=== PATIENT | female | born 1990 | race Caucasian/White ===

== ENCOUNTER 2022-07-01 10:18 | Emergency (ER) | payer OTHER, SELFPAY ==
--- NOTE | 2022-07-01 10:23 | ED.URI ---
HPI - URI/Sore Throat General Chief Complaint: Upper Respiratory Infection Stated Complaint: sorethroat Time Seen by Provider: 07/01/22 10:51 Source: patient and RN notes reviewed Mode of arrival: ambulatory Limitations: no limitations History of Present Illness HPI Narrative: 32-year-old female presents concern for sore throat, headache, vomiting, nasal, body aches for 3 days. She reports she has been taking ibuprofen Tylenol with temporary relief symptoms. MD elicited complaint: sore throat Related Data Home Medications Medication Instructions Recorded Confirmed sertraline 50 mg tablet 50 mg PO DAILY 07/01/22 07/01/22 Allergies Allergy/AdvReac Type Severity Reaction Status Date / Time No Known Allergies Allergy Verified 07/01/22 10:48 Review of Systems Review of Systems: CONSTITUTIONAL: Reports malaise, fatigue. Denies chills, sweats, or fever. EYES: Denies visual changes, redness, or discharge. ENT: Reports rhinorrhea, congestion, sore throat. Denies sinus pain, otalgia CARDIOVASCULAR: Denies chest pain, palpitations, or edema. RESPIRATORY: Denies cough. Denies dyspnea. GASTROINTESTINAL: Denies abdominal pain, nausea, vomiting, diarrhea SKIN: Denies rash or itching. MUSCULOSKELETAL: Reports myalgia. NEUROLOGIC: Reports headache. All systems reviewed & are unremarkable except as noted in HPI and below PMFSH Comments At time of signature, agree with nursing past medical, surgical, social and family history. There is no relevant family history pertinent to the presenting complaint Exam Narrative: GENERAL: Nontoxic appearing and in no acute distress. HEAD: Normocephalic EYES: PERRLA, conjunctivae clear ENT: Nares clear, turbinates edematous and erythematous, clear discharge. Mucous membranes moist. TM pearly sales with dull light reflex bilaterally; no tragal tenderness. Oropharynx not erythematous without lesions. Tonsils not enlarged and without exudate, no drooling, no hoarseness, no trismus, uvula midline. NECK: Supple. No lymphadenopathy CHEST: Clear to auscultation, breath sounds equal. No wheezing, rhonchi, rales, or stridor. No respiratory distress, speaks in full sentences. HEART: Regular rate and rhythm. No murmur heard. SKIN: Warm, dry, no rash. NEURO: Alert and oriented x3. PSYCH: Normal mood and affect Course Course Emergency Course: Patient is aware of diagnosis, understands and agrees to treatment plan. Anticipatory guidance given. Patient agrees to follow-up as directed and is aware of reasons to seek care at the emergency department. Portions of this record may have been created with voice recognition software Level of Care: Express Care Visit Vital Signs Vital signs: Reviewed. MDM - URI/Sore Throat MDM Narrative Medical decision making narrative: Differential diagnosis considered: Guardado virus, strep pharyngitis, allergic rhinitis, upper respiratory tract infection, sinusitis, rhinosinusitis, nasopharyngitis. viral pharyngitis, otitis media, otitis externa, pneumonia, bronchitis, viral cough syndrome, viral syndrome, and influenza. Exam findings show no acute concerns or changes; patient is non-toxic appearing and is in no distress. Patient is appropriate for outpatient treatment and follow-up. Lab Data Attestation: I reviewed the patient's lab results. Critical Care Time Critical Care Time Critical Care Time: No Discharge Plan Discharge Clinical Impression: Upper respiratory infection Qualifiers: URI type: unspecified viral URI Qualified Code(s): J06.9 - Acute upper respiratory infection, unspecified Patient Disposition: Home, Self-Care Condition: Stable Instructions: Upper Respiratory Infection (ED) Additional Instructions: Your rapid COVID and flu tests are negative Your rapid strep swab was negative today at [facility]. A throat culture will be sent to the laboratory for further testing. If the test is positive, you will receive a phone call withi
[2022-07-01 10:37] VITALS: BP 130/83; PULSE 79; RESP 18; TEMP 36.4; O2SAT 99
== END 2022-07-01 11:15 | disposition home or self-care (01) ==
PROVIDERS: Emergency Provider Nurse Practitioner; PCP Nurse Practitioner Family
DX: J06.9 Acute upper respiratory infection, unspecified (principal); Z20.822 Contact with and (suspected) exposure to COVID-19
CPT/HCPCS: 87081; 87426; 87804; 87880; 99203; C9803; G0463

== ENCOUNTER 2022-09-08 10:37 | Emergency (ER) | payer OTHER, SELFPAY ==
[2022-09-08 10:48] VITALS: BP 127/84; PULSE 72; RESP 16; TEMP 36.6; O2SAT 100
--- NOTE | 2022-09-08 11:06 | ED.EAR ---
HPI - Ear Problem General Chief complaint: Ear Stated complaint: lt earache Time Seen by Provider: 09/08/22 11:06 Source: patient Mode of arrival: ambulatory Limitations: no limitations History of Present Illness HPI Narrative: 32 y/o female presented for c/o left ear pain. Reports muffled hearing for about one week. Then started with worsening of chronic tinnitus, 'distorted sounds' and pain since yesterday. Denies dizziness, ear drainage, n/v/d/f/c. Not taking anything for pain. MD Complaint: ear pain Related Data Home Medications Medication Instructions Recorded Confirmed sertraline 50 mg tablet 50 mg PO DAILY 07/01/22 09/08/22 Allergies Allergy/AdvReac Type Severity Reaction Status Date / Time No Known Allergies Allergy Verified 09/08/22 10:40 Review of Systems Review of Systems: CONSTITUTIONAL: Denies malaise, chills, or fever. EYES: Denies visual changes, redness, or discharge. ENT: Denies rhinorrhea, congestion, sinus pain, and sore throat. Reports ear pain CARDIOVASCULAR: Denies chest pain, palpitations, or edema. RESPIRATORY: Denies cough or dyspnea. GASTROINTESTINAL: Denies abdominal pain, nausea, vomiting, diarrhea SKIN: Denies rash or itching. MUSCULOSKELETAL: Denies myalgia. NEUROLOGIC: Denies headache. All systems reviewed & are unremarkable except as noted in HPI and below PMFSH Past Medical History Medical History (Updated 09/08/22 @ 11:15 by Jocelynn Willard, SRIDHAR) No pertinent past medical history Comments At time of signature, agree with nursing past medical, surgical, social and family history. There is no relevant family history pertinent to the presenting complaint Exam Narrative: GENERAL: Well-appearing, and in no acute distress. HEAD: Normocephalic EYES: PERRLA, conjunctivae clear ENT: Nares clear. Mucous membranes moist. Right TM pearly sales with dull light reflex; Left TM erythematous and bulging with purulent effusion; no tragal tenderness. Oropharynx not erythematous without lesions. NECK: Supple. No lymphadenopathy CHEST: Clear to auscultation, breath sounds equal. HEART: Regular rate and rhythm. No murmur heard. SKIN: Warm, dry, no rash. NEURO: Alert and oriented x3. PSYCH: Normal mood and affect Course Course Emergency Course: Patient is aware of diagnosis, understands and agrees to treatment plan. Anticipatory guidance given. Patient agrees to follow-up as directed and is aware of reasons to seek care at the emergency department. Portions of this record may have been created with voice recognition software Level of Care: Express Care Visit Vital Signs Vital signs: Vital Signs Temperature 97.9 F 09/08/22 10:48 Pulse Rate 72 09/08/22 10:48 Respiratory Rate 16 09/08/22 10:48 Blood Pressure 127/84 09/08/22 10:48 Pulse Oximetry 100 09/08/22 10:48 Oxygen Delivery Room Air 09/08/22 10:48 Temperature 97.9 F 09/08/22 10:48 Pulse Rate 72 09/08/22 10:48 Respiratory Rate 16 09/08/22 10:48 Blood Pressure 127/84 09/08/22 10:48 Pulse Oximetry 100 09/08/22 10:48 Oxygen Delivery Room Air 09/08/22 10:48 Reviewed Medical Decision Making MDM Narrative Medical decision making narrative: Discussed physical exam findings consistent with otitis media. Rx augmentin. Advised supportive measures and signs/symptoms to go to the ER. Patient is appropriate for outpatient treatment and follow-up. Differential Diagnosis Differential Diagnosis: Coronavirus, strep pharyngitis, allergic rhinitis, upper respiratory tract infection, sinusitis, rhinosinusitis, nasopharyngitis, viral pharyngitis, otitis media, otitis externa, eustachian tube dysfunction, foreign body, cerumen impaction. Vital Signs Vital Signs: Vital Signs Temperature 97.9 F 09/08/22 10:48 Pulse Rate 72 09/08/22 10:48 Respiratory Rate 09/08/22 10:48 Blood Pressure 127/84 09/08/22 10:48 Pulse Oximetry 100 09/08/22 10:48 Oxygen Delivery Room
== END 2022-09-08 11:14 | disposition home or self-care (01) ==
PROVIDERS: Emergency Provider Nurse Practitioner Family; PCP Nurse Practitioner Family
DX: H66.002 Acute suppurative otitis media without spontaneous rupture of ear drum, left ear (principal)
CPT/HCPCS: 99213; G0463

== ENCOUNTER 2023-01-10 09:02 | Emergency (ER) | payer OTHER, SELFPAY ==
--- NOTE | 2023-01-10 09:16 | ED.URI ---
HPI - URI/Sore Throat General Chief Complaint: Upper Respiratory Infection Stated Complaint: Sore Throat and Bronchitis Time Seen by Provider: 01/10/23 09:16 Source: patient Mode of arrival: ambulatory Limitations: no limitations History of Present Illness HPI Narrative: 32-year-old female presents with complaint of cough for 10 days, sore throat for 4 days. Was seen at another urgent care 4 days ago for cough and was given promethazine. Told that she has bronchitis. Has not started promethazine because she is home alone with her 2 older until her gets home today in did not want to be too sleepy. is taking [id number] Mucinex. Reports that sore throat started after urgent care visit. Afebrile. Denies nausea vomiting diarrhea. Denies chest pain shortness of breath. All systems reviewed and negative except as noted above. Related Data Home Medications Medication Instructions Recorded Confirmed sertraline 50 mg tablet 50 mg PO DAILY 07/01/22 01/10/23 Allergies Allergy/AdvReac Type Severity Reaction Status Date / Time No Known Allergies Allergy Verified 01/10/23 09:11 Review of Systems Review of Systems: CONSTITUTIONAL: Denies fever, chills, or sweats. EYES: Denies visual changes, redness, or discharge. ENT: Denies rhinorrhea, congestion. Reports sore throat. Denies otalgia. CARDIOVASCULAR: Denies chest pain, palpitations, or edema. RESPIRATORY: Reports cough. Denies dyspnea. GASTROINTESTINAL: Denies abdominal pain, nausea, vomiting, or diarrhea. GENITOURINARY: Denies dysuria or hematuria. SKIN: Denies rash or itching. MUSCULOSKELETAL: Denies back pain, joint pain, or myalgia. NEUROLOGIC: Denies headache, numbness, or weakness. PSYCHIATRIC: Denies anxiety or depression. All other systems reviewed are negative, except as documented in HPI. [facility] Past Medical History Medical History (Updated 01/10/23 @ 09:38 by Anisha Lopez NP) No pertinent past medical history Comments At time of signature, agree with nursing past medical, surgical, social and family history. There is no relevant family history pertinent to the presenting complaint. Exam Narrative: GENERAL: This is a well-nourished, well-developed patient, in no apparent distress. HEAD: normocephalic, atraumatic. EYES: PERRL. Sclera clear/white. Vision is grossly intact. EARS: External ears normal, auditory canals clear and without drainage, TMs normal without perforation. Hearing grossly intact. NOSE: External nose normal with no obvious nasal discharge, nares without redness, no rhinorrhea. THROAT: Mucous membranes moist, Erythematous with mild swelling. No exudates. Tonsils 1+ bilaterally. NECK: Neck supple, non-tender without lymphadenopathy, masses or thyromegaly. CARDIOVASCULAR: Regular rate and rhythm without murmurs, gallops, or rubs. RESPIRATORY: Clear to auscultation. Breath sounds equal bilaterally. No wheezes, rales, or rhonchi. SKIN: warm, Dry, intact with no suspicious lesions or rash, good texture and turgor. NEURO: awake, alert, and oriented to person, place and time. There were no obvious focal neurologic abnormalities. EXTREMITIES: No joint tenderness, effusion, or edema noted. Course Course Level of Care: Express Care Visit Vital Signs Vital signs: Reviewed MDM - URI/Sore Throat MDM Narrative Medical decision making narrative: Patient is aware of diagnosis, understands and agrees to treatment plan. Anticipatory guidance given. Patient agrees to follow-up as directed and is aware of reasons to seek care at the emergency department. Portions of this record may have been created with voice recognition software Differential Diagnosis Differential diagnosis: Likely pharyngitis ( strep throat) Discharge Plan Discharge Clinical Impression: Strep throat, Cough Patient Disposition: Home, Self-Care Condition: Stable Instructions: Strep Throat (ED) Additional Instructio
[2023-01-10 09:36] VITALS: BP 127/91; PULSE 103; RESP 18; TEMP 36.6; O2SAT 99
== END 2023-01-10 09:42 | disposition home or self-care (01) ==
PROVIDERS: Emergency Provider Nurse Practitioner Family
DX: J02.0 Streptococcal pharyngitis (principal); R05.9 Cough, unspecified
CPT/HCPCS: 87880; 99213; G0463

== ENCOUNTER → 2024-02-04 12:06 | Outpatient (CLI) | payer BC, SELFPAY ==
--- NOTE | ~2024-02-04 | XR_ITS ---
XR chest 2V 02/04/2024 12:52 Indication: Cough for 2 months Procedure: 2 view chest Comparison: No prior studies for comparison. Findings: Lingular infiltrates are present, suspicious for pneumonia. No pleural effusion, edema or p neumothorax. Heart size normal. No acute osseous abnormality. Impression: 1: Lingular infiltrates, suspicious for pneumonia. Reviewed, dictated and finalized at location B. ICAL SCIENCES PROFESSOR Impression: 1: Lingular infiltrates, suspicious for pneumonia.
== END ==
DX: R05.9 Cough, unspecified (principal); R91.8 Other nonspecific abnormal finding of lung field
CPT/HCPCS: 71046

== ENCOUNTER 2024-09-17 18:59 | Emergency (ER) | payer BC, SELFPAY ==
--- OUTSIDE RECORDS SUMMARY | 2024-09-17 19:02 | XMS_ITS | Clinical Summary ---
Author Organization [facility] Address [address] [address] Care Team Providers Care Armature Balancer Name Role Phone Rena Perrin MD Primary Care Provider [phone] Esther Penn MD Unavailable [phone] Source Comments [facility],non-owned Affiliates and Associated Physician Practices is amultiple site organization consisting of ambulatory clinics and hospital sitesin [place], [place], [place] and [place]. This disclosure is being madepursuant to the Care Everywhere program and may not contain all information available regarding this patient. Last updated 17.[facility] Allergies Active Allergy Reactions Criticality Noted Date Comments Nickel Rash Medium 02/27/2010 Medications * Be aware that medications may not be up to date on this document. Alwaysverify current medications with the patient. triamcinolone acetonide (KENALOG) 0.1 % creamIndications :Irritant contact dermatitis, unspecified trigger Apply to affected area 2 times daily 80 g 1 Active sertraline (ZOLOFT) 50 MG tabletIndication s:LAW (generalized anxiety disorder) TAKE 1 TABLET BY MOUTH EVERY DAY 30 tablet 2 Active Active Problems Problem Noted Date Diagnosed Date Eczema 07/11/2020 Overview (07/11/2020): will change from eucerin to lachytrin, will burst with topical steroids for 2 weeks, discussed good skin care with moisturizing cleanser vrs soap (such as Cetaphil). Father and daughter agreed to plan and will f/u in 2 weeks if not significantly improved LAW (generalized anxiety disorder) 07/11/2020 Immunizations Immunization Administration Dates Next Due [place] primary monovalent 12+ yr 0.5mL ,05/17/2020 INFLUENZA VACCINE, QUADR. (F LUZONE; FLULAVAL; FLUARIX; AFLURIA QUADRIVALENT; 6MO+), 0.5 ML (IIV4) 01/12/2019 TDAP, HISTORIC VACCINE 03/27/2017 Family History Medical History Relation Name Comments Cancer - Breast Maternal Grandmother Cancer - Ovarian Maternal Grandmother None Known Mother CAD (Coronary Artery Disease) Paternal Grandfather Diabetes - Type 2 Paternal Grandfather Cancer - Breast Paternal Grandmother Cancer - Colon Neg Hx Cancer - Pancreatic Neg Hx Cancer - Prostate Neg Hx Depression Neg Hx Relation Name Status Comments Father Alive Maternal Grandfather Alive Maternal Grandmother Alive Mother Alive Paternal Grandfather Alive Paternal Grandmother Social History Tobacco Use Types Packs/Day Years Used Date Smoking Tobacco: Never Smokeless Tobacco: Never Alcohol Use Standard Drinks/Week Comments Yes 1 (1 standard drink = 0.6 oz pur e alcohol) PHQ-2 Answer Date Recorded PHQ2 TOTAL SCORE 0 10/10/2020 Comments No Sex and Gender Information Value Date Recorded Sex Assigned at Not on file Legal Sex Female 6:30 PM CDT Gender Identity Female 02/02/2018 5:04 PM INSURANCE ADVISER Sexual Orientation Not on file Occupation Industry Job Start Date Job End Date [employer] Not on file Not on file Not on file Last Filed Vital Signs Vital Sign Reading Time Taken Comments Blood Pressure 120/82 10/19/2020 3:57 PM CDT Pulse 82 10/19/2020 3:57 PM CDT Temperature 35.8 C (96.4 F) 06/23/2020 7:55 AM CDT Respiratory Rate 16 10/19/2020 3:57 PM CDT Oxygen Saturation 99% 10/19/2020 3:57 PM CDT Inhaled Oxygen Concentration - - Weight 88 kg (194 lb) 10/19/2020 3:57 PM CDT Height 165.1 cm (5' 5) 10/19/2020 3:57 PM CDT Body Mass Index 32.28 10/19/2020 3:57 PM CDT Plan of Treatment Health Maintenance Due Date Last Done Comments HEPATITIS B VACCINE (1 of 3 - 19+ 3-dose series) 2010 PAP SMEAR 01/18/2012 HPV VACCINE (1 - 3-dose SCDM series) 2018 COVID-19 VACCINE (3 - 2023-2 5 season) 2023 06/14/2020, 05/17/2020 DEPRESSION SCREENING 02/25/2024 INFLUENZA VACCINE (#1) 2024 01/12/2019 DTAP/TDAP/TD VACCINES (2 - T d or Tdap) 03/27/2027 03/27/2017 ZOSTER VACCINE (1 of 2) 2041 HEPATITIS C SCREENING Completed 06/23/2020 HIV SCREENING Completed 06/23/2020 HIB VACCINE Aged Out No longer eligi ble based on patient's age to complete this topic MENINGOCOCCAL (Group B) VACCINE SHARED DECISION-MAKING Aged Out No longer eligible based on patient's age to complete this topic MENINGOCOCCAL GROUPS A/C/Y/W VACCINE Aged Out No longer eligible b ased on patient's age to complete this topic PNEUMOCOCCAL VACCINE Aged Out No long er eligible based on patient's age to complete this topic Procedures Procedure Name Priority Date/Time Associated Diagnosis Comments HIV-1 HIV-2 ANTIBODY + HIV P24 AG PANEL Routine 06/23/2020 9:25 AM CDT Encounter for screening and preventative care HEPATITIS C AB W RFLX VERIFICATION Routine 06/23/2020 9:21 AM CDT Encounter for screening and preventative care from Last 3 Months or Most Recently Relevant to Health Maintenance Results * HIV-1 HIV-2 ANTIBODY + HIV P24 AG PANEL (06/23/2020 9:25 AM CDT) HIV Screen 4th Generation w Reflex Non Reactive Non Reactive [facility] INSURANCE BILL Comment:FASTING Blood BLOOD SPECIMEN / Unknown 06/23/2020 9:25 AM CDT 06/23/2020 Narrative Resulting Agency Comment Lab Testing performed at: [facility] [id number] [place] Rena Perrin MD LAB - CHEMISTRY ORDERABLES Final Result [facility] INSURANCE BILL [address] [place] [address] * HEPATITIS C AB W RFLX VERIFICATION (06/23/2020 9:21 AM CDT) Hepatitis C Antibody <0.1 0.0 - 0.9 s/co ratio [facility] INSURANCE BILL Comment:FASTING Blood BLOOD SPECIMEN / Unknown 06/23/2020 9:21 AM CDT 06/23/2020 Narrative Resulting Agency Comment Lab Testing performed at: [facility] [place] [id number] [facility] [id number] [place] Rena Perrin MD LAB - CHEMISTRY ORDERABLES Final Result [facility] [facility] INSURANCE BILL [address] [place] [address] from Last 3 Months or Most Recently Relevant to Health Maintenance Insurance [facility] Care Teams Armature Balancer Relationship Specialty Start Date End Date Rena Perrin MD [address] [place] [id number] PCP - General Family Medicine 06/23/20 Esther Penn MD [address] [facility] [place] [id number] Obstetrics and Gynecology 06/23/20
--- OUTSIDE RECORDS SUMMARY | 2024-09-17 19:02 | XMS_ITS | Data Portability ---
Author Organization [facility] [place], Main Office Address [address] [place] [address] Assessment No assessment recorded. Plan of Treatment Reminders Order Date Submit Date Provider Last Modified By Organization Details Last Modified Time Details Appointments None recorded. Lab vitamin B12, serum [address] (Lab), [address] [place], [address], 3 08:10:42 vitamin D, 25-hydroxy, total, serum [address] (Lab), [address] [place], [address], 3 08:10:42 pap, IG + reflex HR HPV 2022 023 [facility], [address] [place], [address], 3 13:13:36 lipid panel, serum [address], [address] [place], [address], 3 08:15:03 TSH, serum, reflex free T4 [address], [address] [place], [address], 3 08:15:03 CMP, serum or plasma [address], [address] [place], [address], 3 08:15:03 HbA1c (hemoglobin A1c), blood [email or web address], [address] [place], [address], 3 08:15:03 CBC w/ auto diff [email or web address], [address] [place], [address], 3 08:15:02 Referral None recorded. Procedures None recorded. Surgeries None recorded. Imaging None recorded. Medication Orders Medrol (Brain) 4 mg tablets in a dose pack 2022 023 [place] [id number], [address] [place], [place], [id number], 3 09:30:18 sertraline 50 mg tablet 2022 023 [place] [id number], [address] [place], [place], [id number], 3 10:04:39 Patient TargetsNo targets recorded. Patient Instructions Encounter Date Encounter Id Patient Instructions Last Modified By Organization Details Last Modified Time 05/09/2022 [id number] FU 6 mo for anxiety. Needs WWE. Not available 05/09/2022 10:08:55 Reason for Referral None Reported. Results Created Date Observation Date Name Description Value Unit Range Abnormal Flag Note LastModifiedBy Organization Detail LastModifiedTime 08/13/1908/13/2022 LIPID PANEL , STAND DAISHA cholesterol, total 226 mg/dL <200 high Not Available [facility] [address] [place], [address], 08/13/2022 03:50:16 08/13/19 23 08/13/2022 LIPID PANEL , STAND DAISHA HDL cholesterol 60 mg/dL > or = 50 normal Not Available [facility] [address] [place], [address], 08/13/2022 03:50:16 08/13/1908/13/2022 LIPID PANEL , STAND DAISHA triglyceride s 146 mg/dL <150 normal Not Available [facility] [address] [place], [address], 08/13/2022 03:50:16 08/13/19 23 08/13/2022 LIPID PANEL , STAND DAISHA LDL-choleste rol 138 mg/dL _(jenelle c) high Refer ence range : <100 Denise able range <100 mg/dL for prima ry preve ntion ; <70 mg/dL for patie nts with CHD or diabe tic patie nts with > or = 2 CHD risk facto rs. LDL-C is now calcu lated using the Shandra n-Hop kins billyu john n, which is a valid ated novel neetu cruzte r accur acy than the Fried daquan equat ion in the estim ation of LDL-C . Shandra zambrano SS et al. RADHA. 2013; 310(1 9): 2061- 2068 (http ://ed ucati on.[employer] Sen [place]. [facility]/f aq/FA Q164) Not Available [facility] [address] [address], [place], [address], 08/13/2022 03:50:16 08/13/1908/13/2022 LIPID PANEL , STAND DAISHA chol/HDLC ratio 3.8 (calc ) <5.0 normal Not Available [facility] [address] [place], [address], 08/13/2022 03:50:16 08/13/1908/13/2022 LIPID PANEL , STAND DAISHA non HDL cholesterol 166 mg/dL _(jenelle c) <130 high For patie nts with diabe liv plus 1 major ASCVD risk facto r, treat ing to a non-H DL-C goal of <100 mg/dL (LDL- C of <70 mg/dL ) is consi dered a thera peuti c optio n. Not Available [address], [address], 08/13/2022 03:50:16 08/13/19 23 08/13/2022 COMPR EHENS GIUSEPPE METAB OLIC PANEL glucose 94 mg/dL 65-99 normal Fasti ng refer ence inter akiko Not Available [address], [address], 08/13/2022 03:50:16 08/13/19 23 08/13/2022 COMPR EHENS GIUSEPPE METAB OLIC PANEL urea nitrogen (BUN) 8 mg/dL 7-25 normal Not Available [address], [address], 08/13/2022 03:50:16 08/13/19 23 08/13/2022 COMPR EHENS GIUSEPPE METAB OLIC PANEL creatinine 0.59 mg/dL 0.50-0 .97 normal Not Available [address], [address], 08/13/2022 03:50:16 08/13/19 23 08/13/2022 COMPR EHENS GIUSEPPE METAB OLIC PANEL eGFR 123 mL/mi n/1.7 3m2 > or = 60 normal The eGFR is based on the CKD-E PI 2020 mara kay. To calcu late the new eGFR from a previ ous Creat inine or Cysta tin C resul t, go to https ://dejah w.db brush.o maribeth/griselda grover s/ kdoqi /gfr% 5Fcal culat or Not Available [address], [address], 08/13/2022 03:50:16 08/13/19 23 08/13/2022 COMPR EHENS GIUSEPPE METAB OLIC PANEL BUN/creatini ne ratio NOT APPLIC ABLE (calc ) 6-22 Not Available [address] [place], [address], 08/13/2022 03:50:16 08/13/19 23 08/13/2022 COMPR EHENS GIUSEPPE METAB OLIC PANEL sodium 136 mmol/ L 135-14 6 normal Not Available [address], [address], 08/13/2022 03:50:16 08/13/19 23 08/13/2022 COMPR EHENS GIUSEPPE METAB OLIC PANEL potassium 4.1 mmol/ L 3.5-5. 3 normal Not Available [address], [address], 08/13/2022 03:50:16 08/13/19 23 08/13/2022 COMPR EHENS GIUSEPPE METAB OLIC PANEL chloride 101 mmol/ L 98-110 normal Not Available [address], [address], 08/13/2022 03:50:16 08/13/19 23 08/13/2022 COMPR EHENS GIUSEPPE METAB OLIC PANEL carbon dioxide 27 mmol/ L 20-32 normal Not Available [address], [address], 08/13/2022 03:50:16 08/13/19 23 08/13/2022 COMPR EHENS GIUSEPPE METAB OLIC PANEL calcium 9.4 mg/dL 8.6-10 .2 normal Not Available [address], [address], 08/13/2022 03:50:16 08/13/19 23 08/13/2022 COMPR EHENS GIUSEPPE METAB OLIC PANEL protein, total 7.2 g/dL 6.1-8. 1 normal Not Available [address], [address], 08/13/2022 03:50:16 08/13/19 23 08/13/2022 COMPR EHENS GIUSEPPE METAB OLIC PANEL albumin 4.7 g/dL 3.6-5. 1 normal Not Available [address], [address], 08/13/2022 03:50:16 08/13/19 23 08/13/2022 COMPR EHENS GIUSEPPE METAB OLIC PANEL globulin 2.5 g/dL_ (calc ) 1.9-3. 7 normal Not Available [address], [address], 08/13/2022 03:50:16 08/13/19 23 08/13/2022 COMPR EHENS GIUSEPPE METAB OLIC PANEL albumin/glob ulin ratio 1.9 (calc ) 1.0-2. 5 normal Not Available [address], [address], 08/13/2022 03:50:16 08/13/19 23 08/13/2022 COMPR EHENS GIUSEPPE METAB OLIC PANEL bilirubin, total 0.5 mg/dL 0.2-1. 2 normal Not Available [address], [address], 08/13/2022 03:50:16 08/13/19 23 08/13/2022 COMPR EHENS GIUSEPPE METAB OLIC PANEL alkaline phosphatase 56 U/L 31-125 normal Not Available [address], [address], 08/13/2022 03:50:16 08/13/19 23 08/13/2022 COMPR EHENS GIUSEPPE METAB OLIC PANEL AST 16 U/L 10-30 normal Not Available [address], [address], 08/13/2022 03:50:16 08/13/19 23 08/13/2022 COMPR EHENS GIUSEPPE METAB OLIC PANEL ALT 15 U/L 6-29 normal Not Available [address], [address], 08/13/2022 03:50:16 08/13/19 23 08/13/2022 CBC (INCL UDES DIFF/ PLT) white blood cell count 5.5 thous and/u L 3.8-10 .8 normal Not Available [address], [address], 08/13/2022 03:50:17 08/13/19 23 08/13/2022 CBC (INCL UDES DIFF/ PLT) red blood cell count 4.48 mak on/uL 3.80-5 .10 normal Not Available [address], [address], 08/13/2022 03:50:17 08/13/19 23 08/13/2022 CBC (INCL UDES DIFF/ PLT) hemoglobin 12.8 g/dL 11.7-1 5.5 normal Not Available [address], [address], 08/13/2022 03:50:17 08/13/19 23 08/13/2022 CBC (INCL UDES DIFF/ PLT) hematocrit 37.9 % 35.0-4 5.0 normal Not Available [address], [address], 08/13/2022 03:50:17 08/13/19 23 08/13/2022 CBC (INCL UDES DIFF/ PLT) MCV 84.6 fL 80.0-1 00.0 normal Not Available [address], [address], 08/13/2022 03:50:17 08/13/19 23 08/13/2022 CBC (INCL UDES DIFF/ PLT) MCH 28.6 pg 27.0-3 3.0 normal Not Available [address], [address], 08/13/2022 03:50:17 08/13/19 23 08/13/2022 CBC (INCL UDES DIFF/ PLT) MCHC 33.8 g/dL 32.0-3 6.0 normal Not Available [address], [address], 08/13/2022 03:50:17 08/13/19 23 08/13/2022 CBC (INCL UDES DIFF/ PLT) RDW 13.5 % 11.0-1 5.0 normal Not Available [address], [address], 08/13/2022 03:50:17 08/13/19 23 08/13/2022 CBC (INCL UDES DIFF/ PLT) platelet count 253 thous and/u L 140-40 0 normal Not Available [address], [address], 08/13/2022 03:50:17 08/13/19 23 08/13/2022 CBC (INCL UDES DIFF/ PLT) MPV 10.6 fL 7.5-12 .5 normal Not Available [address], [address], 08/13/2022 03:50:17 08/13/19 23 08/13/2022 CBC (INCL UDES DIFF/ PLT) absolute neutrophils 3108 cells /uL 1500-7 800 normal Not Available [address], [address], 08/13/2022 03:50:17 08/13/19 23 08/13/2022 CBC (INCL UDES DIFF/ PLT) absolute lymphocytes 1920 cells /uL 850-39 00 normal Not Available [address], [address], 08/13/2022 03:50:17 08/13/19 23 08/13/2022 CBC (INCL UDES DIFF/ PLT) absolute monocytes 281 cells /uL 200-95 0 normal Not Available [address], [address], 08/13/2022 03:50:17 08/13/19 23 08/13/2022 CBC (INCL UDES DIFF/ PLT) absolute eosinophils 143 cells /uL 15-500 normal Not Available [address], [address], 08/13/2022 03:50:17 08/13/19 23 08/13/2022 CBC (INCL UDES DIFF/ PLT) absolute basophils 50 cells /uL 0-200 normal Not Available [address], [address], 08/13/2022 03:50:17 08/13/19 23 08/13/2022 CBC (INCL UDES DIFF/ PLT) neutrophils 56.5 % normal Not Available [address], [address], 08/13/2022 03:50:17 08/13/19 23 08/13/2022 CBC (INCL UDES DIFF/ PLT) lymphocytes 34.9 % normal Not Available [address], [address], 08/13/2022 03:50:17 08/13/19 23 08/13/2022 CBC (INCL UDES DIFF/ PLT) monocytes 5.1 % normal Not Available [address], [address], 08/13/2022 03:50:17 08/13/19 23 08/13/2022 CBC (INCL UDES DIFF/ PLT) eosinophils 2.6 % normal Not Available [address], [address], 08/13/2022 03:50:17 08/13/19 23 08/13/2022 CBC (INCL UDES DIFF/ PLT) basophils 0.9 % normal Not Available [address], [address], 08/13/2022 03:50:17 08/13/19 23 08/13/2022 TSH W/REF SADA TO FT4 TSH w/reflex to FT4 1.53 mIU/L normal Refer ence Range > or = 20 Years 0.40- 4.50 Pregn aguilar Range s First trime ster 0.26- 2.66 Secon d trime ster 0.55- 2.73 Third trime ster 0.43- 2.91 Not Available [facility] [address] [address] , [place], [address], 08/13/2022 03:50:18 08/13/19 23 08/13/2022 HEMOG LOBIN A1C hemoglobin A1C 5.0 %_of_ total _HGB <5.7 normal For the purpo se of radha dominguez for the prese nce of diabe liv: <5.7% Consi stent with the absen ce of diabe liv 5.7-6 .4% Consi stent with incre ased risk for diabe liv (pred iabet es) > or =6.5% Consi stent with diabe liv This assay resul t is consi stent with a decre ased risk of diabe liv. Curre ntly, no conse nsus exist s lynda ontiveros use of hemog lobin A1c for diagn osis of diabe liv in child jose angel. Accor ding to Ameri can Diabe liv Assoc iatio n (ADA) guide lines , hemog lobin A1c <7.0% repre sents optim al contr ol in non-p regna nt diabe tic patie nts. Diffe rent metri cs may apply to speci fic patie nt popul ation s. Stand ards of Medic al Care in Diabe liv(A DA). Not Available [facility] [address] [place], [address], 08/13/2022 03:50:19 Result Notes None recorded. Problems Name Problem SNOMED Code Status Onset Date Resolution Date Notes Provider Name and Address Organization Details Recorded Time Anxiety 78911116 Active 023 [place]a León NP [address], [address], [place], [address] , [employer] 3 10:03:05 Family history of breast cancer 989479498 Active 023 [place]a León [facility] [address] [facility] [address], [place], [address] , [employer] 3 10:27:42 Fatigue 05933201 Active 023 Louisa León NP [address], [address], [place], [address] , [employer] 3 17:52:46 Otitis media 95035635 Active 023 Louisa León NP [address], [address], [place], [address] , [employer] 3 09:29:12 Problem Notes None recorded. Procedures Surgical History Date Name Laterality Status Provider Name and Address Organization Details Recorded Time Removal of tonsils completed [place]a Lopez RN [place] [facility] 05/09/2022 09:47:26 Imaging Results None recorded. Procedure Notes None recorded. Medical Equipment None Reported. Allergies No known drug allergies Medications Name Sig Start Date Stop Date Status Note LastModified by Organization Details LastModified Time labetalol 200 mg tablet 05/09 completed Not Available Not Available Not Available ciprofloxaci n 0.3 % eye drops INSTILL 2 DROPS IN BOTH EYES EVERY 2 HOURS 09/17 completed Not Available Not Available Not Available oseltamivir 75 mg capsule 05/09 completed Not Available Not Available Not Available ibuprofen 600 mg tablet 05/09 completed Not Available Not Available Not Available methylpredni solone 4 mg tablets in a dose pack TAKE 1 TABLET BY MOUTH EVERY DAY active Not Available Not Available No t Available cefdinir 300 mg capsule TAKE 1 CAPSULE BY MOUTH TWICE DAILY UNTIL ALL TAKEN active Not Available Not Available No t Available sertraline 50 mg tablet TAKE 1 TABLET BY MOUTH EVERY DAY 2022 active Not Available Not Available Not Avai lable amoxicillin 875 mg-potassium clavulanate 125 mg tablet TAKE 1 TABLET BY MOUTH EVERY 12 HOURS FOR 7 DAYS 09/17 completed Not Available Not Available Not Available moxifloxacin 0.5 % eye drops INSTILL 1 DROP IN BOTH EYES THREE TIMES DAILY FOR 3 DAYS 05/09 completed Not Available Not Available Not Available nitrofuranto in monohydrate/ macrocrystal s 100 mg capsule 05/09 completed Not Available Not Available Not Available Bonjesta 20 mg-20 mg tablet,immed iate and delay release 05/09 completed Not Available Not Available Not Available Vitals Date Recorded Body height Body mass index (BMI) Body weight Heart rate Respiratory rate Oxygen saturation Oxygen saturation in Arterial blood by Pulse oximetry Body temperature Systolic And Diastolic Provider Name and Address Organization Details Last Updated DateTime 3 165.1 cm 32.4 kg/m2 15865.5 1 g 77 /min 16 /min 99 % 99 % 98.2 [degF] 120/80 mm[Hg] [place]a Lopez RN [facility] [employer] [facility] 3 09:45:01 Date Recorded Body height Body mass index (BMI) Body weight Provider Name and Address Organization Details Last Updated DateTime 05/17/2022 165.1 cm 32.8 kg/m2 57998.05 g [place]a Lopez RN [facility] [employer] [facility] 05/17/2022 09:48:17 Date Recorded Body height Body mass index (BMI) Body weight Body temperature Heart rate Oxygen saturation Oxygen saturation in Arterial blood by Pulse oximetry Systolic And Diastolic Provider Name and Address Organization Details Last Updated DateTime 3 165.1 cm 33.4 kg/m2 92721.9 2 g 97.6 [degF] 81 /min 99 % 99 % 136/90 mm[Hg] Kylee Camilo MA [facility] [employer] [facility] 3 17:23:09 Date Recorded Body height Body mass index (BMI) Body weight Body temperature Heart rate Respiratory rate Oxygen saturation Oxygen saturation in Arterial blood by Pulse oximetry Pain severity - 0-10 verbal numeric rating [Score] - Reported Systolic And Diastolic Provider Name and Address Organization Details Last Updated DateTime 3 165.1 cm 32.7 kg/m2 34386.2 g 96.9 [degF] 75 /min 16 /min 97 % 97 % 0 138/90 mm[Hg] Louisa Lopez RN [facility] [employer] [facility] 09:13:28 Social History Question Answer Notes LastModified by Organizat ion Details LastModified Time Tobacco Smoking Status Never Smoker Louisa Lopez RN [facility], [facility] [employer] [facility] 05/09/2022 09:46:45 Do You Have An Advance Directive? No Information not available 05/09/2022 Is Blood Transfusion Acceptable In An Emergency? Yes Information not available 05/09/2022 What Is Your Level Of Caffeine Consumption? Occasional Information not available 05/09/2022 What Is Your Code Status? Full Code Information not available 05/09/2022 In The 14 Days Before Symptom Onset, Have You Had Close Contact With A Laboratory-confir med COVID-19 While That Case Was Ill? No Information not available 05/17/2022 In The 14 Days Before Symptom Onset, Have You Had Close Contact With A Person Who Is Under Investigation For COVID-19 While That Person Was Ill? No Information not available 05/17/2022 What Type Of Diet Are You Following? REGULAR Information not available 05/09/2022 What Is The Highest Grade Or Level Of School You Have Completed Or The Highest Degree You Have Received? [id number] Information not available 05/17/2022 Have There Been Any Changes To Your Family Or Social Situation? No Information no t available 05/09/2022 Do You Use Insect Repellent Routinely? Yes Information not available 05/17/2022 Where Do You Live? SingleLevelHouse Information not available 05/17/2022 Do You Have A Medical Power Of Side Seam Tender? No Information not available 05/09/2022 How Many Children Do You Have? 0 Information not available 05/17/2022 Do You Have Any Pets? Yes Information not available 05/17/2022 Do You Use Protection During Sex? No Information not available 05/17/2022 What Is Your Relationship Status? Information not available 05/17/2022 Do You Use Your Seat Belt Or Car Seat Routinely? Yes Information not available 05/17/2022 Are You Sexually Active? Yes Information not available 05/17/2022 Do You Have Smoke And Carbon Monoxide Detectors In Your Home? Yes Information not available 05/17/2022 Are You Passively Exposed To Smoke? No Information no t available 05/17/2022 Are There Any Smokers In Your House? No Information not available 05/17/2022 Do You Participate In Social Media? Yes Information not available 05/17/2022 Do You Use Sunscreen Routinely? Yes Information not available 05/17/2022 Have You Recently Traveled Abroad? No Information not available 05/17/2022 Sex: Unknown Functional Status Question Answer Note LastModified by Organizat ion Details LastModified Time Do you use any illicit or recreational drugs? No Information not available 05/09/2022 Are you currently employed? Yes Information not available 05/17/2022 What is your exercise level? None Information not available 05/09/2022 Mental Status Question Answer Note LastModified by Organization D etails LastModified Time Do you feel stressed (tense, restless, nervous, or anxious, or unable to sleep at night)? [id number] Information not available 05/09/2022 Family History Relationship Description Onset Age of this Age Resolved Age Notes LastModified by Organization Details LastModified Time Mother Hypertensive disorder Not available 2022 09:45:25 Maternal Grandmother Malignant tumor of breast 60 [email or web address] Not available 2022 10:22:44 Paternal Aunt Malignant tumor of breast 42 [email or web address] Not available 2022 22:31:22 Father Sleep apnea Not availab le 08/06/2022 17:56:12 Medical History Condition Response ANXIETY DISORDER Y Gynecological History Statement/Question Response Abnormal Pap N Flow Moderate Date of LMP 08/26/2022 STIs/STDs N Dislike of Light during Menstrual Headac he N Do your menstrual headaches get severe N Date of Last Pap 05/17/2022 Age at Menarche 15 Most Recent Mammogram Date of Last Colonoscopy Frequency of Cycle (Q days) 6 Most Recent Bone Density Sexually Active? Y Do you get headaches during your period Y Menses Monthly Y Date of Last Pap Smear Obstetrics History GPAL:G 3 P 2 0 0 0 Type Value Multiple Births 1 Full Term 2 Total 3 Past Encounters Encounter ID Performer Location Encounter Start Date Encounter Closed Date Diagnosis/Indication Diagnosis SNOMED-CT Code Diagnosis ICD10 Code Diagnosis Note [id number] Louisa León NP [address] [address] 05/09/2022 09:16:31 05/09/2022 10:13:42 Anxiety 68255002 F41.9 Sertraline 50 mg po daily. Anemia screening 3449723 07 Z13.0 Diabetes m ellitus screening 485838177 Z13.1 Thyroid di sorder screening 273674121 Z13.29 Hyperlipid emia screening 497545727 Z13.220 Adult heal th examination 427357925 Z00.00 Encouraged well balanced meals, active lifestyle, and routine vision and dental appts. [id number] Louisa León NP [address] [address] 05/17/2022 09:37:59 05/17/2022 10:27:23 Gynecologic examination 12010344 Z01.419 Encouraged well balanced meals, active lifestyle, and routine vision and dental appts. Family his tory of breast cancer 184263946 Z80.3 Patient not sure how old aunt was at time of diagnosis. May need to get baseline on patient. Patient will investigat e the family history and get back with us. She is not sure if anyone has had genetic testing, either. [id number] Louisa León NP [address] [address] 08/06/2022 17:14:37 08/06/2022 18:05:47 Fatigue 30104457 R53.83 Get full panel of labs done per order 05/09/22. [id number] Louisa León NP [address] [address] 09/17/2022 09:03:38 09/17/2022 09:50:54 Otitis media 46015763 H66.92 Medrol dose brain added to Cefdinir. Health Concerns Section Related Observation LastModified by Organization Detai ls LastModified Time None Recorded Concern Status LastModified by Organization Details LastModified Time None Recorded Advance Directives Directive N: Payers Insurance Date Sequence Insurance Name Policy Number Policy Shankar Covered Member ID Shankar Member ID Guarantor Name 09/14/2022 Vimal DWYER [id number] Matilde Bolanos [id number] Matilde Bolanos Notes Date Note Type Note Provider Name and Address Organization Details Recorded Time 05/09/2022 text/html Pt. here for wellness and med refill. It's been about a year since she's had a PCP. [employer] SET UP MECHANIC: Tami Penn in [place] - 2 years ago; always normal; needs to scheduleLMP - a week ago; regular; no control Labs - states it's been a little over a year since she's had bloodwork Anxiety - takes 50 mg of Zoloft; she's been taking it for about 2 years; keeps it under control Vaccines - she's had two doses and one boosterTdap - 2021 Diet - Regular diet; eats a lot of fast food, fried foods. She does eat meat, vegetables, and fruit. Drinks coffee or diet soda; drinks water also. Exercise - Does not exercise regularly. Eye Exam - not up to date; needs to scheduleDental Exam - not up to date; needs to schedule Louisa León NP [address], [address], [place], [address], [employer] 05/09/2022 10:12:37 05/17/2022 text/html Here for pap. Last was 2 years ago.Never abnormal pap. Not interested in contraception.Josselyn scottNo concerns today. Louisa León NP [address], [address], [place], [address], [employer] 05/17/2022 10:28:24 08/06/2022 text/html Feeling fatigued all the time. Sleep- no issues when asleep, but is woke up 1-3 times nightly from 4 yo. Noticing fatigue on weekends. Will sleep 10 pm to 10 am. Still wanting a nap after that as well. Snores lightly if that. Rare getting up to use restroom at night. No tonsils. Father + sleep apnea.Diet- trying to get well balanced meals, Has been struggling with dieting. Feeling addicted to food. Trying weight watchers. Louisa León NP [address], [address], [place], [address], [facility] [place] 08/06/2022 18:03:15 09/17/2022 text/html here for left ear pain and clogged feeling. Went to 2 weeks ago and given amoxicillin and it popped.Bubbles under TM, teledoc said go to ER, so went 09/12/22 and given shot and stronger antibiotic. Can hear better but still some issues.Had tubes in ears as a child. No Ear infection in several years until now.Denies flying or swimming.Some sore throat, but came and went quickly. Cefdinir 300 mg bid for 10 days.Did get IM shot.Still on benadryl at night. Louisa León NP [address], [place], [address], [employer] 09/17/2022 09:45:10 OBGyn Episode No OBEpisode recorded.
--- OUTSIDE RECORDS SUMMARY | 2024-09-17 19:02 | XMS_ITS | Clinical Summary ---
Author Organization [facility] Address [address] [place] [id number] Care Team Providers Care Museum Educator Name Role Phone None, Provider Primary Care Provider Jewell Clarke Unavailable Family History Medical History Relation Comments Breast Cancer Maternal Grandmother Breast Cancer Paternal Aunt Breast Cancer Paternal Grandmother Relation Status Comments Maternal Grandmother Paternal Aunt Alive Paternal Grandmother Social History Tobacco Use Types Packs/Day Years Used Date Smoking Tobacco: Never Assessed Comments Unknown Sex and Gender Information Value Date Recorded Sex Assigned at Not on file Legal Sex Female 6:39 PM CDT Gender Identity Not on file Sexual Orientation Not on file Plan of Treatment Health Maintenance Due Date Last Done Comments Cervical Cancer Screening Pa p Smear (Age 30 to 64) Every 3 Years 1991 Annual Physical 1994 Hepatitis B Vaccines (1 of 3 - 19+ 3-dose series) 2010 HPV Vaccines (1 - 3-dose SCD M series) 2018 Cervical Cancer Screening Pa p with HPV Testing (Age 30 to 64) Every 5 Years 2021 Cervical Cancer Screening wi th HPV 2021 COVID-19 Vaccine (3 - 2023-2 5 season) 2023 06/14/2020, 05/17/2020 DTaP, Tdap and Td Vaccines ( 2 - Td or Tdap) 03/27/2027 03/27/2017 Hepatitis C Completed 06/23/2020 Meningococcal B Vaccine Aged Out No l onger eligible based on patient's age to complete this topic Meningococcal Vaccine Aged Out No patricia kishore eligible based on patient's age to complete this topic Pneumococcal Vaccine: Pediatrics (0 to 5 Years) and At-Risk Patients (6 to 49 Years) Aged Out No longer eligible b ased on patient's age to complete this topic RSV Immunizations Under 20 Months Aged Out No longer eligible b ased on patient's age to complete this topic Insurance [facility] Care Teams Museum Educator Relationship Specialty Start Date End Date None, Provider, PCP - General UNKNOWN PHYSICIAN SPECIALTY 01/14/23 Jewell Tabares PA [address] [place] [address] 01/14/23
[2024-09-17 19:10] VITALS: BP 123/89; PULSE 92; RESP 18; TEMP 36.9; O2SAT 100
--- NOTE | 2024-09-17 20:32 | ED.SKABFB ---
HPI - Skin/Abscess/Foreign Bdy General Chief complaint: Skin/Abscess/Foreign Body Stated complaint: sharp pain in cheek Time Seen by Provider: 09/17/24 19:15 Source: patient and RN notes reviewed Mode of arrival: ambulatory Limitations: no limitations History of Present Illness HPI narrative: 34-year-old female presents Express Care complaining of left facial pain and left ear pain. Patient was diagnosed with shingles 2 days ago, symptoms started 6 days ago. Patient is currently on valacyclovir. Patient reports worsening pain to left side of face that radiates into her left ear. Patient reports having a rash on her forehead that extends into her scalp. Patient has a history of chickenpox. Patient denies any rash anywhere else on her face, on her ear, or near eye. Patient denies any vision problems, dizziness, lightheadedness, tinnitus, blurry vision, hearing problems, fevers, body aches, chills, or any other symptoms. Related Data Home Medications ?Medication ?Instructions ?Recorded ?Confirmed ?Last Taken ?Type sertraline 50 mg tablet 50 mg PO DAILY 07/01/22 09/17/24 Unknown History Allergies Allergy/AdvReac Type Severity Reaction Status Date / Time No Known Allergies Allergy Verified 09/17/24 19:09 Review of Systems Review of Systems: CONSTITUTIONAL: Denies fever, chills, or sweats. EYES: Denies visual changes, redness, or discharge. ENT: Denies rhinorrhea, congestion, sore throat. Positive for otalgia. CARDIOVASCULAR: Denies chest pain, palpitations, or edema. RESPIRATORY: Denies cough or dyspnea. GASTROINTESTINAL: Denies abdominal pain, nausea, vomiting, or diarrhea. GENITOURINARY: Denies dysuria or hematuria. SKIN: Negative for itching. Positive for rash. MUSCULOSKELETAL: Denies back pain, joint pain, or myalgia. NEUROLOGIC: Denies headache, numbness, or weakness. PSYCHIATRIC: Denies anxiety or depression. All other systems reviewed are negative, except as documented in HPI. [facility] Past Medical History Medical History No pertinent past medical history Comments At the time of my signature, I reviewed and agree with the nursing past medical, surgical, social, and family history. There is no relevant family history pertinent to the patient complaint. Exam Narrative: GENERAL: This is a well-nourished, well-developed adult, in no apparent distress. They are non ill-appearing, nontoxic appearing. HEAD: normocephalic, atraumatic. EYES: Sclera clear/white. Conjunctiva normal. Vision is grossly intact. Extraocular movements intact. Pupils PERRLA. EARS: No suspicious rashes or lesions to external ears. External ears normal, auditory canals clear and without drainage, TMs normal without perforation. Hearing grossly intact. No mastoid tenderness. NOSE: External nose normal with no obvious nasal discharge, nasal turbinates without redness, no rhinorrhea. THROAT: Mucous membranes moist, posterior pharynx clear, without erythema or swelling. Uvula midline. NECK: Neck supple, CARDIOVASCULAR: Regular rate and rhythm without murmurs, gallops, or rubs. RESPIRATORY: Clear to auscultation. Breath sounds equal bilaterally. No wheezes, rales, or rhonchi. SKIN: Erythematous papular vesicular rash to the patient's left lateral forehead extending to the proximal scalp. Rash follows a dermatome. No rash extending into the nasal bridge around the eye, no rash on ear, no rash extending down the left side of the face. NEURO: awake, alert, and oriented to person, place and time. There were no obvious focal neurologic abnormalities. EXTREMITIES: No joint tenderness, effusion, or edema noted. Course Course Emergency Course: Portions of this record may have been created with voice recognition software Level of Care: Express Care Visit Vital Signs Vital signs: Vital Signs Temperature 98.4 F 09/17/24 19:10 Pulse Rate 92 09/17/24 19:10 Respiratory Rate 18 09/17/24 19:10 Blood Pressure 123/89 09/17/24 19:10 Pulse Oximetry 100 09/17/24 19:10 Oxygen Delivery Room Air 09/17/24 19:10 Temperature 98.4 F 09/17/24 19:10 Pulse Rate 92 09/17/24 19:10 Respiratory Rate 18 09/17/24 19:10 Blood Pressure 123/89 09/17/24 19:10 Pulse Oximetry 100 09/17/24 19:10 Oxygen Delivery Room Air 09/17/24 19:10 Reviewed MDM - Skin/Abscess/Foreign Bdy MDM Narrative Medical decision making narrative: Patient likely having nerve pain from herpes zoster virus. No evidence of Lilly Odom syndrome. Advised patient to have close follow-up with PCP monitor symptoms closely. ER precautions discussed especially patient develops a rash around her eye, vision problems, rash on the ear, hearing problems, tinnitus, dizziness, or any other serious symptoms. Patient currently on valacyclovir. Lesions have not fully crusted but appear that they are healing well. Discussed physical exam findings. Advised supportive measures and signs/symptoms to go to the ER. Pt is appropriate for outpt treatment and f/u. Differential Diagnosis Differential diagnosis: Likely herpes zoster, cellulitis, impetigo and other (Lilly Odom syndrome, otitis media, otitis externa, TMJ) Critical Care Time Critical Care Time Critical Care Time: No Discharge Plan Discharge Clinical Impression: Herpes zoster Qualifiers: Herpes zoster complications: without complications Qualified Code(s): B02.9 - Zoster without complications Patient Disposition: Home Condition: Stable Instructions: Shingles (ED) Additional Instructions: Alternate Tylenol/ibuprofen for as needed for pain Acetaminophen(Tylenol) 1000mg every 6 day hours with max of 4000mg/day. Nonsteroidal anti-inflammatory agent (NSAIDs-ibuprofen): 600-800 mg every 6-8 hours with max 3200 mg/day. Continue to take valacyclovir and finish the course. Shingles normally resolves on its own in 7-10 days. You are longer contagious once the rash is crusted over. Follow-up with your PCP in 3-5 days. If you develop a rash in your ears, ringing in your ears, dizziness, severe nerve pain, eye pain, rash around your eye, blurry vision, vision changes, or any worsening symptoms or concerns please go to the ER immediately. Patient Language: Cuban Prescriptions: No Action sertraline 50 mg tablet 50 mg PO DAILY Follow-up/Referrals: Zak,Kelly Chaves [facility]NAGER [facility]AC[facility] [Primary Care Provider] - Time of Disposition: 19:23
== END 2024-09-17 19:27 | disposition home or self-care (01) ==
PROVIDERS: PCP Nurse Practitioner
DX: B02.9 Zoster without complications (principal)
CPT/HCPCS: 99211; G0463